=== PATIENT | female | born 1930 | race Caucasian/White ===

== ENCOUNTER 2020-04-15 12:32 | Emergency (ER) | payer MEDICARE, OTHER ==
--- NOTE | 2020-04-15 14:08 | EDM.PDOC ---
ED HPI GENERAL MEDICAL PROBLEM - General Chief Complaint: Cardiovascular Problem Stated Complaint: DIZZY SPELLS Time Seen by Provider: 04/15/20 14:00 Source of Information: Reports: Patient History Limitations: Reports: No Limitations - History of Present Illness INITIAL COMMENTS - FREE TEXT/NARRATIVE: Patient presents for evaluation of recent onset dizziness. She awoke approx imately 0400 hrs. today to use the bathroom and when sitting up from bed, had a sudden spinning and off-balance sensation. She was able to get to the bathroom by holding onto other objects around her and then returned to bed, falling back asleep. She awoke again around 1000 hrs. and similar to earlier when she sat up or change position in any direction, she had an off balance and spinning feelin g. Objects in the room would seem to go in a [place]. If she stopped moving and sat down/rested, the spinning and dizziness sensation would go away. No changes in eyesight or hearing. No palpitations or chest discomfort. She has never had anything like this happen before. She saw her primary care provider only a few days ago and no changes were made to medications or other cares. Her blood p ressure at the time of that visit was in the 120 systolic range. Since arriving here it has been higher, 190 systolic while I was talking with her. She does state that her blood pressure goes up when other she visits the doctor or medical facility. Onset: Sudden Duration: Intermittent, Waxing/Waning Location: Reports: Head Quality: Reports: Other (Spinning sensation.) Severity: Mild Improves with: Reports: Rest Worsens with: Reports: Movement Associated Symptoms: Reports: No Other Symptoms - Related Data Allergies Allergy/AdvReac Type Severity Reaction Status Date / Time No Known Allergies Allergy Verified 04/15/20 13:47 Home Meds: Home Meds Losartan Potassium 1 tab PO DAILY 04/15/20 [History] hydroCHLOROthiazide [Hydrochlorothiazide] 1 tab PO DAILY 04/15/20 [History] Past Medical History Cardiovascular History: Reports: Hypertension - Past Surgical History GI Surgical History: Reports: Appendectomy Musculoskeletal Surgical History: Reports: Knee Replacement Social & Family History - Tobacco Use Smoking Status *Q: Never Smoker ED ROS GENERAL - Review of Systems Review Of Systems: See Below Constitutional: Reports: Other (Increase in blood pressure subsequent to arrival here.) HEENT: Reports: Vertigo. Denies: Ear Pain, Hearing Loss, Vision Change Respiratory: Reports: No Symptoms Cardiovascular: Reports: No Symptoms Musculoskeletal: Reports: No Symptoms Neurological: Reports: Dizziness, Difficulty Walking (Related to dizziness/room spinning.). Denies: Confusion, Headache, Numbness, Syncope Hematologic/Lymphatic: Reports: No Symptoms ED EXAM, GENERAL - Physical Exam Exam: See Below Free Text/Narrative:: This is an adult female interviewed while she is seated in a wheelchair in room 6. She is in no distress and has no dizzy/spinning feelings at this time. Exam Limited By: No Limitations General Appearance: Alert, No Apparent Distress Eye Exam: Bilateral Eye: EOMI Neck: Supple, Non-Tender. No: Carotid Bruit Respiratory/Chest: Lungs Clear Cardiovascular: Regular Rate, Rhythm, Systolic Murmur (/) Neurological: Alert, Oriented, CN II-XII Intact, Normal Cognition EKG INTERPRETATION EKG Date: 04/15/20 Time: 14:46 Rhythm: NSR Rate (Beats/Min): 79 [place]: Normal P-Wave: Present QRS: Wide ST-T: Normal QT: Prolonged EKG Interpretation Comments: There are atrial premature complexes present. Course - Vital Signs Last Recorded V/S: Last Vital Signs Temp 36.1 C 04/15/20 13:54 Pulse 66 04/15/20 13:54 Resp 14 04/15/20 13:54 BP 179/79 H 04/15/20 13:54 Pulse Ox 94 L 04/15/20 13:54 - Orders/Labs/Meds Orders: Active Orders 24 hr Category Date Time Status EKG Documentation Completion [RC] ASDIRECTED Care 04/15/20 14:17 Ordered EKG 12 Lead [EK] Routine Ther 04/15/20 14:16 Ordered Labs: Laboratory Tests 04/15/20 04/15/20 Range/Units 14:33 14:33 WBC 6.8 (4.5-11.0) K/uL RBC 4.45 (3.30-5.50) M/uL Hgb 13.2 (12.0-15.0) g/dL Hct 42.6 (36.0-48.0) % MCV 96 (80-98) fL MCH 30 (27-31) pg MCHC 31 L (32-36) % Plt Count 278 (150-400) K/uL Neut % (Auto) 75 H (36-66) % Lymph % (Auto) 15 L (24-44) % [place] % (Auto) 9 H (2-6) % Eos % (Auto) 2 (2-4) % Baso % (Auto) 0 (0-1) % Sodium 139 L (140-148) mmol/L Potassium 4.3 (3.6-5.2) mmol/L Chloride 103 (100-108) mmol/L Carbon Dioxide 27 (21-32) mmol/L Anion Gap 13.3 (5.0-14.0) mmol/L BUN 20 H (7-18) mg/dL Creatinine 1.4 H (0.6-1.0) mg/dL Est Cr Clr Drug Dosing 21.97 mL/min Estimated GFR (MDRD) 35 L (>60) Glucose 131 H (74-106) mg/dL Calcium 9.2 (8.5-10.1) mg/dL - Re-Assessments/Exams Free Text/Narrative Re-Assessment/Exam: 04/15/20 14:25 It sounds like vertigo. I discussed that it can come on suddenly and then only slowly dissipate over weeks. We will assess things metabolically and also an EKG and CT scan of the head. If those are unremarkable, will have her treat this conservatively. 04/15/20 16:28 Orthostatic vital signs were unremarkable. The CT scan and other lab tests looked fine. At rest, she does not have her dizziness symptoms. We discussed the option of meclizine however at her age the risk of sedation from it could be significant and I would not want to have her fall and sustain other injuries. At this time she is electing to use nonmedical measures of dealing with this including slow changes of position. If not beginning to improve in a week, she could recheck with her primary care team. Instructions for use of meclizine were included in her discharge note but I again stressed caution if using it to avoid sedation. 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 Departure - Departure Time of Disposition: 16:20 Disposition: Home, Self-Care 01 Clinical Impression: Vertigo Referrals: PCP,None [Primary Care Provider] - Forms: ED Department Discharge Additional Instructions: Avoid sudden changes in position. Use cane for additional safety when moving around. Depending on how you feel after several days, you could consider getting some meclizine, it is not prescription anymore. A dose for you would be 1/2 tablet, which is 12.5 mg, 2 or 3 times a day. The biggest risk is that it could make you sleepy and more prone to falling. If you are not improving after a week or so, contact your primary care team back home. If you feel worse in any way return to emergency department. Sepsis Event Note (ED) - Evaluation Sepsis Screening Result: No Definite Risk - Focused Exam Vital Signs: Vital Signs Temp Pulse Resp BP Pulse Ox 04/15/20 13:54 36.1 C 66 14 179/79 H 94 L - My Orders Last 24 Hours: My Active Orders 04/15/20 14:16 EKG 12 Lead [EK] Routine 04/15/20 14:17 EKG Documentation Completion [RC] ASDIRECTED - Assessment/Plan Last 24 Hours: My Active Orders 04/15/20 14:16 EKG 12 Lead [EK] Routine 04/15/20 14:17 EKG Documentation Completion [RC] ASDIRECTED
--- NOTE | 2020-04-15 15:45 | CRLCT ---
Dizziness noncontrast head CT No comparison studies are available. TECHNIQUE: Noncontrast head CT. Findings: Axial noncontrast images through the brain parenchyma demonstrates no acute intracranial hemorrhage or mass. No midline shift. Mild generalized parenchymal volume loss. No acute extra-axial air fluid collections. Paranasal sinuses mastoid air cells skull and scalp appear unremarkable. Impression: 1. No acute intracranial hemorrhage or mass. Please note that all CT scans at this facility use dose modulation, iterative reconstruction, and/or weight-based dosing when appropriate to reduce radiation dose to as low as reasonably achievable. Dictated by Laura Olivas MD @ Apr 15 2020 3:43PM Signed by Dr. Laura Olivas @ Apr 15 2020 3:44PM
== END 2020-04-15 17:02 | disposition home or self-care (01) ==
LOC: JP.ED 12:32
DX: R42 Dizziness and giddiness (principal); I10 Essential (primary) hypertension; Z79.899 Other long term (current) drug therapy
CPT/HCPCS: 36415; 70450; 80048; 85025; 93005; 99284-25